=== PATIENT | male | born 1985 | race Native Hawaiian/Other Pacific Islander ===

== ENCOUNTER 2018-04-14 16:30 | Emergency (ER) | payer OTHER ==
[~2018-04-14] VITALS: Ht 182.9 cm; Wt 117.9 kg
[2018-04-14 16:52] VITALS: TEMP 98.2
[2018-04-14 18:00] VITALS: BP 150/84
== END 2018-04-14 19:04 | disposition home or self-care (01) ==
LOC: ED 16:30
DX: M66.821 Spontaneous rupture of other tendons, right upper arm (principal)
CPT/HCPCS: 99283; J1885

== ENCOUNTER 2021-05-17 01:52 | Emergency (ER) | payer OTHER | END 2021-05-17 03:21 | disposition home or self-care (01) | LOC: ED 01:52 | DX: H10.13 Acute atopic conjunctivitis, bilateral (principal) | CPT/HCPCS: 99282 ==

== ENCOUNTER 2021-07-27 14:36 | Emergency (ER) | payer OTHER ==
[~2021-07-27] VITALS: Ht 182.9 cm; Wt 127.0 kg
[2021-07-27 15:35] LABS: PLATELET COUNT 206 K/uL (142-355)
[2021-07-27 15:41] LABS: POTASSIUM 4.1 mmol/L (3.6-5.2)
[2021-07-27 16:58] VITALS: BP 1126/74; TEMP 100.3
== END 2021-07-27 17:32 | disposition home or self-care (01) ==
LOC: ED 14:36
PROVIDERS: Hospitalist
DX: E86.0 Dehydration (principal); R50.9 Fever, unspecified; N39.0 Urinary tract infection, site not specified; J18.9 Pneumonia, unspecified organism; U07.1 COVID-19
CPT/HCPCS: 36415; 80053; 81000; 83605; 83690; 85027; 87040; 87635; 96360; 96365; 96376; 99284; J0696; J1885; J2405; U0003

== ENCOUNTER 2021-07-31 16:57 | Emergency (ER) | payer OTHER ==
[~2021-07-31] VITALS: Ht 182.9 cm; Wt 117.9 kg
[2021-07-31 18:06] LABS: PLATELET COUNT 263 K/uL (142-355)
[2021-07-31 18:11] LABS: POTASSIUM 4.2 mmol/L (3.6-5.2); SODIUM 131 mmol/L (136-145)
[2021-07-31 21:29] VITALS: BP 101/44; TEMP 99.5
== END 2021-07-31 21:26 | disposition home or self-care (01) ==
LOC: ED 16:57
PROVIDERS: Emergency Medicine
DX: U07.1 COVID-19 (principal); J12.82 Pneumonia due to coronavirus disease 2019; R09.02 Hypoxemia; E87.1 Hypo-osmolality and hyponatremia
CPT/HCPCS: 80048; 84484; 85027; 85379; 93005; 96372; 99283; J1100; J1885